=== PATIENT | female | born 1975 | race Caucasian/White ===

== ENCOUNTER 2019-01-17 20:42 | Inpatient (IN) | payer BC, MEDICAID ==
[2019-01-17 21:41] LABS: ABS Basophils 0.1 10^3/ul (0-0.2); ABS Lymphocytes 1.9 10^3/ul (1.0-4.8); ABS Monocytes 0.6 10^3/ul (0-0.8); ABS Neutrophils 7.7 10^3/ul (1.5-7.7); Eosinophil % 0.2 %; Hematocrit 30 % (35-47); Hemoglobin 9.8 g/dL (12.0-16.0); Lymphocyte % 18.5 %; Mean Corpuscular HGB Conc 32 g/dL (31-36); Mean Corpuscular Hemoglobin 26 pg (27-31); Mean Corpuscular Volume 81 fL (80-97); Mean Platelet Volume 8.2 fL (7.4-10.4); Platelet Count 202 10^3/uL (150-450); Red Blood Count 3.74 10^6 /uL (3.70-4.87); Red Cell Distribution Width 15 % (10-15); White Blood Count 10.4 10^3/uL (3.5-10.8)
[2019-01-17] MEDS ORDERED: Oxytocin in LR* 20 UNITS/1,000 ML BAG IVPB ONE (21:55)
[2019-01-17] MEDS ORDERED: Lactated Ringers 1000 ML Bag* 1,000 ML IV ONE (21:55)
[2019-01-17] MEDS ORDERED: Buffered Lidocaine 1% SYRIN* 1 ML/SYRINGE INTRADERM ONE (21:55)
[2019-01-17] MEDS ORDERED: Lactated Ringers 1000 ML Bag* 1,000 ML IV SCH ×2 (22:00→23:45)
--- NOTE | 2019-01-17 22:00 | HP ---
General Information - Reason for Visit contractions - General Information Maternal Age: 37 Grav: 5 Para: 2 SAB: 2 IEA: 0 Estimated Due Date: 01/14/13 Determined By: Early Ultrasound Maternal Blood Type and Rh: A Negative - Results this Serology/RPR Result: Non-Reactive Rubella Result: Immune HBsAg Result: Negative HIV Result: Negative GBS Culture Result: Negative Past Medical History Delivery History: See Records Pertinent Past Medical History: See Records Pertinent Past Surgical History: See Records Pertinent Family History: See Records - Antepartal Records Antepartal Records: Reviewed, Complicated by: - AMA, A1DM Review of Systems Constitutional: Uncomfortable CV Complaint: No Respiratory: Shortness of Breath: No Gastrointestinal: No Nausea/Vomiting Genitourinary: No Dysuria, No Bleeding, No Leaking Fluid Musculoskeletal: Contractions Neurological: No Headache Movement: Normal Exam Allergies/Adverse Reactions: Allergies No Known Allergies Allergy (Verified 04/14/16 15:47) Lab Values - Entire Visit: Laboratory Tests 01/17/19 21:20 WBC 10.4 RBC 3.74 Hgb 9.8 L Hct 30 L MCV 81 MCH 26 L MCHC 32 RDW 15 Plt Count 202 MPV 8.2 Neut % (Auto) 74.2 Lymph % (Auto) 18.5 [place] % (Auto) 6.2 Eos % (Auto) 0.2 Baso % (Auto) 0.9 Absolute Neuts (auto) 7.7 Absolute Lymphs (auto) 1.9 Absolute Monos (auto) 0.6 Absolute Eos (auto) 0.0 Absolute Basos (auto) 0.1 Absolute Nucleated RBC 0.0 Nucleated RBC % 0.0 - Measurements Height: 5 ft 6 in Weight: 168 lb Body Mass Index (BMI): 27.1 Pre- Weight: 4.409 oz - Exam Breast: Breast Exam Deferred CVA: No CVA Tenderness Extremities: No Edema Heart: Normal Rhythm/Heart Sounds HEENT: No Significant Findings Lungs: Clear Bilaterally Rectal: Rectal Exam Deferred Reflexes: DTR 2+ Thyroid: No Thyromegaly - Abdominal Exam Abdomen Exam: Non-Tender - Ultrasound/Biophysical Profile Ultrasound Status: Not Done Targeted Exam Findings Cervical Exam: 8cm Effacement: 100% Station: -1 Presenting Part: Vertex Membrane Status: Intact EFM Findings - External Monitor Findings Baseline Heart Rate: 140 External Monitor Findings: Accelerations Present, No Pattern of Variable or Late Decelerations, Variability Moderate Contractions: Regular - q4 Assessment/Plan - Assessment Pt 43 yo at 40 4/7 week with active labor. GBS negative - Plan Plan: Admit - Anticipate Vaginal Delivery
[2019-01-17] MEDS ORDERED: Glycerin ADULT SUPP PR PRN (23:06)
[2019-01-17] MEDS ORDERED: Dibucaine 1% 28.35 GM TUBE PR PRN (23:06)
[2019-01-17] MEDS ORDERED: RHO D Immune Globulin (HUMAN)* 300 MCG = 1,500 I.U. INJ IM ONE (23:06)
[2019-01-17] MEDS ORDERED: Acetaminophen TAB* 325 MG PO PRN (23:06)
[2019-01-17] MEDS ORDERED: Ibuprofen TAB* 600 MG PO PRN (23:06)
[2019-01-17] MEDS ORDERED: Witch Hazel PAD* JAR TOPICAL PRN (23:06)
--- NOTE | 2019-01-17 23:15 | PROCNOTE ---
[facility] OB: Delivery Note - Delivery A Date of : 01/17/19 Time of : 10:38 Sex: Female Score 1 Minute: 8 Score 5 Minutes: 9 Gestational Age in Weeks and Days at Delivery: 40 Weeks and 4 Days Delivery Method: Spontaneous Vaginal Labor: Spontaneous Did Patient attempt ?: N/A, No Previous Amniotic Fluid: Clear Estimated Blood Loss: 420 Anesthesia/Analgesia: Other - lidociane 10 cc 1 % for perineal laceration repair - Nursery Level of Nursery: Regular/Bedside - Perineum Perineal Injury: Perineal Laceration - repair with 2.0 vicryl/ standard fashion Perineal Repair: By Delivering Practioner - Dr Matilde Flower - Events Delivery Events of Note: Pitocin Only After Delivery
[2019-01-17] MEDS ORDERED: Oxytocin in LR* 20 UNITS/1,000 ML BAG IVPB SCH (23:45)
[2019-01-18] MEDS ORDERED: Lidocaine 1% INJ* 10 MG/ML 30 ML SDV ONE (02:04)
--- NOTE | 2019-01-18 06:32 | HP ---
General Information - General Information Maternal Age: 43 Grav: 6 Para: 3 SAB: 2 IEA: 0 Estimated Due Date: 01/13/19 Determined By: Early Ultrasound Maternal Blood Type and Rh: A Negative - Results this Serology/RPR Result: Non-Reactive Rubella Result: Immune HBsAg Result: Negative HIV Result: Negative GBS Culture Result: Negative Past Medical History Delivery History: See Records Pertinent Past Medical History: See Records Pertinent Past Surgical History: See Records Pertinent Family History: See Records - Antepartal Records Antepartal Records: Reviewed, Complicated by: - AMA A1DM Review of Systems Constitutional: Uncomfortable CV Complaint: No Respiratory: Shortness of Breath: No Gastrointestinal: No Nausea/Vomiting Genitourinary: No Dysuria, No Bleeding, No Leaking Fluid Musculoskeletal: Contractions Neurological: No Headache Movement: Normal Exam Allergies/Adverse Reactions: Allergies No Known Allergies Allergy (Verified 04/14/16 15:47) Vital Signs 01/17/19 01/17/19 01/18/19 23:13 23:35 00:50 Temperature 99.2 F 99.0 F 98.8 F Pulse Rate 70 69 60 Respiratory 18 18 18 Rate Blood Pressure 124/63 123/55 109/71 (mmHg) 01/18/19 01/18/19 01:38 03:04 Temperature 98.6 F 98.2 F Pulse Rate 77 71 Respiratory 16 16 Rate Blood Pressure 121/71 111/60 (mmHg) Lab Values - Entire Visit: Laboratory Tests 01/17/19 01/17/19 21:20 21:20 WBC 10.4 RBC 3.74 Hgb 9.8 L Hct 30 L MCV 81 MCH 26 L MCHC 32 RDW 15 Plt Count 202 MPV 8.2 Neut % (Auto) 74.2 Lymph % (Auto) 18.5 [place] % (Auto) 6.2 Eos % (Auto) 0.2 Baso % (Auto) 0.9 Absolute Neuts (auto) 7.7 Absolute Lymphs (auto) 1.9 Absolute Monos (auto) 0.6 Absolute Eos (auto) 0.0 Absolute Basos (auto) 0.1 Absolute Nucleated RBC 0.0 Nucleated RBC % 0.0 Blood Type A Negative Antibody Screen Negative - Measurements Height: 5 ft 6 in Weight: 168 lb Weight in lbs: 168.087647 Body Mass Index (BMI): 27.1 Pre- Weight: 4.409 oz Weight Gained This : 24 lbs and 0 ozs - Exam Breast: Breast Exam Deferred CVA: No CVA Tenderness Extremities: No Edema Heart: Normal Rhythm/Heart Sounds HEENT: No Significant Findings Lungs: Clear Bilaterally Rectal: Rectal Exam Deferred Reflexes: DTR 2+ Thyroid: No Thyromegaly - Abdominal Exam Abdomen Exam: Non-Tender - Ultrasound/Biophysical Profile Ultrasound Status: Not Done Targeted Exam Findings Cervical Exam: 8cm Effacement: 100% Station: -2 Presenting Part: Vertex Membrane Status: Intact EFM Findings - External Monitor Findings Baseline Heart Rate: 140 External Monitor Findings: Accelerations Present, No Pattern of Variable or Late Decelerations, Variability Moderate Contractions: Regular - q4' Assessment/Plan - Assessment PT 43 YO PRESENTS IN ACTIVE LABOR GBS NEGATIVE. - Plan Plan: Admit - Anticipate Vaginal Delivery
[2019-01-18 07:52] LABS: ABS Basophils 0.1 10^3/ul (0-0.2); ABS Lymphocytes 1.8 10^3/ul (1.0-4.8); ABS Monocytes 0.9 10^3/ul (0-0.8); ABS Neutrophils 10.7 10^3/ul (1.5-7.7); Eosinophil % 0.1 %; Hematocrit 27 % (35-47); Hemoglobin 8.9 g/dL (12.0-16.0); Lymphocyte % 13.5 %; Mean Corpuscular HGB Conc 33 g/dL (31-36); Mean Corpuscular Hemoglobin 27 pg (27-31); Mean Corpuscular Volume 80 fL (80-97); Mean Platelet Volume 7.8 fL (7.4-10.4); Platelet Count 192 10^3/uL (150-450); Red Blood Count 3.36 10^6 /uL (3.70-4.87); Red Cell Distribution Width 15 % (10-15); White Blood Count 13.5 10^3/uL (3.5-10.8)
[2019-01-18] MEDS ORDERED: Simethicone TAB* 80 MG TAB.CHEW PO SCH (08:30)
[2019-01-18] MEDS: Docusate CAP* 100 MG PO SCH ×3 (08:44→20:44)
[2019-01-18] MEDS: Ferrous Gluconate TAB* 324 MG TAB PO SCH ×2 (08:44→20:44)
[2019-01-19] MEDS: Ferrous Gluconate TAB* 324 MG TAB PO SCH (08:47)
[2019-01-19] MEDS: Docusate CAP* 100 MG PO SCH (08:47)
[2019-01-19 08:51] VITALS: BP 122/77
== END 2019-01-19 13:13 | disposition home or self-care (01) | DRG 560 ==
LOC: MCHOBOUT 20:42 → MCHOB 21:23
PROVIDERS: ADMIT Obstetrics & Gynecology; ATTEND Obstetrics & Gynecology
PROC: 10E0XZZ Delivery of Products of Conception, External Approach (ICD-10-PCS; principal; 2019-01-17)
PROC: 10907ZC Drainage of Amniotic Fluid, Therapeutic from Products of Conception, Via Natural or Artificial Opening (ICD-10-PCS; 2019-01-17)
PROC: 0KQM0ZZ Repair Perineum Muscle, Open Approach (ICD-10-PCS; 2019-01-17)
DX: O48.0 Post-term pregnancy (principal); Z37.0 Single live birth; O70.1 Second degree perineal laceration during delivery; O90.81 Anemia of the puerperium; D64.9 Anemia, unspecified; Z3A.40 40 weeks gestation of pregnancy
CPT/HCPCS: 36415; 85025; 85461; 86850; 86900; 86901; A9270-GY; J2790